=== PATIENT | female | born 1945 | race Caucasian/White ===

== ENCOUNTER 2016-12-18 15:40 | Emergency (ER) | payer MEDICARE ==
[2016-12-18 15:53] VITALS: BP 178/58
--- NOTE | 2016-12-18 16:17 | ED Physician Documentation ---
Eye Problem - HISTORIAN Historian: patient - HPI Stated Complaint: FB left eye Chief Complaint: Eye Problems Additional Information: thinks eye lash in lt eye Onset: days ago (1) Associated symptoms: pain, burining, itching, sensitivity to light Location: left eye Severity: mild, moderate Apparent Injury: no Context: foreign body Where: home Other Injuries: denies: neck, head, back Further Comments: yes - ROS CONST: no problems MS/SKIN/LYMPH: denies: weakness, numbness, neck pain, back pain CVS/RESP: none. denies: shortness of breath EYES/ENT: none GI/: denies: problems urinating - PAST HX Past History: other (hypothryoid) Allergies/Adverse Reactions: Allergies Allergy/AdvReac Type Severity Reaction Status Date / Time aspirin Allergy Mild stomach Verified 12/18/16 15:53 upset Home Medications: Ambulatory Orders Medication Instructions Recorded Levothyroxine Sodium [Synthroid] 100 mcg PO DAILY 10/12/12 - SOCIAL HX Smoking History: greater than 1 pack/day Alcohol Use: none Drug Use: none - FAMILY HX Family History: no significant history - VITAL SIGNS Vital Signs: Vital Signs Temp Pulse Resp BP Pulse Ox 98.2 F 89 20 178/58 94 12/18/16 15:50 12/18/16 15:50 12/18/16 15:50 12/18/16 15:50 12/18/16 15:50 - REVIEWED ASSESSMENTS Nursing Assessment Reviewed: Yes Vitals Reviewed: Yes ED Results Lab/Radiology - Lab Results Lab Results: no foriegn body found even w/ fluorisine and eye magnificaon Eye Problem Physical Exam - Physical Exam General Appearance: mild distress Examined with Slit Lamp: No Visual Acuity: no globe trauma Eyelids: nml inspection. No: foreign body under eyelid (L), subcutaneous orbital emphysema, edema (R), edema (L) Conjunctiva and Sclera: nml inspection. No: subconjunctival hemorrhage (L) Corneas: nml inspection. No: foreign body (L), fluorescein dye uptake (L) EOM: intact Pupils: equal Anterior Chambers: nml inspection Head/ENT: nml inspection Skin: nml color, skin intact. No: ecchymosis, abrasions, laceration Neck/Back: nml inspection Respiratory: chest non-tender, wheezes. No: no resp distress, breath sounds normal CVS: reg rate & rhythm, heart sounds normal Abdomen: non-tender Neuro/Psych: oriented x3 Discharge Clincal Impression: for body lt eye Referrals: Primary Doctor,No [Primary Care Provider] - 2 Days Comments: on exam w/ fluorisein and blue light no f/b found. decided to use fluorescein and blue light - no aF/B FOUND--USE SYSTANE Condition: Good Disposition: 01 HOME, SELF-CARE Decision to Admit: NO Decision Time: 16:25
== END 2016-12-18 16:15 | disposition home or self-care (01) ==
LOC: ED 15:40
DX: T15.92XA Foreign body on external eye, part unspecified, left eye, initial encounter (principal); X58.XXXA Exposure to other specified factors, initial encounter; Y93.9 Activity, unspecified; Y99.9 Unspecified external cause status
CPT/HCPCS: 99283

== ENCOUNTER 2018-08-24 08:50 | Emergency (ER) | payer MEDICARE ==
[2018-08-24] MEDS ORDERED: CEPHALEXIN 250 MG CAPSULE PO ONE (09:07)
--- NOTE | 2018-08-24 09:10 | ED Physician Documentation ---
Skin Rash - HISTORIAN Historian: patient - HPI Chief Complaint: Skin Rash (CELLULITIS) Additional Information: Patient is a 73-year-old female who presents to the ER with right foot redness- denies any pain, numbness, or tingling. States that she noticed redness 3 days ago- she states it actually looks better this morning then it did last night. She has a small blister between the 4th & 5th toe. Pedal pulses are 2+, brisk cap refills. No infection pass the foot. Onset: days ago (3 days) Timing: better (pt states it looks better) Location: LLE (foot) Quality: none Identified Cause?: No When Did Symptoms Start: 08/21/18 Where: home Context: Medication Exposure: none Context: Food Exposure: none Further Comments: no - ROS CONST: none CVS/RESP: none EYES/ENT: none GI/: none MS/SKIN/LYMPH: other (redness/erythema to right foot) NEURO/PSYCH: none - PAST HX Past History: other (COPD, DEPRESSION, HYPOTHYROID) Other History: none Surgeries/Procedures: Yes (BTL, TONSILS, RIGHT SHOULDER) Immunizations: UTD Allergies/Adverse Reactions: Allergies Allergy/AdvReac Type Severity Reaction Status Date / Time aspirin Allergy Mild stomach Verified 08/24/18 09:01 upset Home Medications: Ambulatory Orders Medication Instructions Recorded Levothyroxine Sodium [Synthroid] 100 mcg PO DAILY 10/12/12 Albuterol Sulfate [Proair Hfa] 2 puff INH Q4H PRN 08/24/18 Fluoxetine HCl [Prozac] 20 mg PO DAILY 08/24/18 Loratadine 10 mg PO DAILY 08/24/18 Tiotropium [place] [Spiriva] 1 puff INH DAILY 08/24/18 - SOCIAL HX Smoking History: greater than 1 pack/day (2PPD) Alcohol Use: none Drug Use: none - FAMILY HX Family History: none - VITAL SIGNS Vital Signs: Vital Signs Temp Pulse Resp BP Pulse Ox 178/58 12/18/16 16:15 - REVIEWED ASSESSMENTS Nursing Assessment Reviewed: Yes Vitals Reviewed: Yes ED Results Lab/Radiology - Orders Orders: ED Orders Category Date Time Status Cephalexin [Keflex] Med 08/24/18 09:07 Once 1,000 mg PO NOW ONE Skin Rash Physical Exam - EXAM General Appearance: no acute distress, alert Skin: warm,dry, other (REDNESS/ERYTHEMA RIGHT FOOT) Location: other (RIGHT FOOT) Character: erythematous Symptoms: warmth, swelling, inflammation EENT: eyes nml inspection, lips nml, pharynx nml Neck: trachea midline, no swelling Respiratory: breath sounds normal CVS: heart sounds nml Abdomen: nml bowel sounds Neuro/Psych: oriented x3, CN's nml as tested, motor nml, sensation nml, mood/affect nml Discharge Clincal Impression: Cellulitis of foot, right Referrals: Primary Doctor,No [Primary Care Provider] - 2 Days Additional Instructions: Cephalexin 1000 mg given in ER- start taking 500mg by mouth every 6 hours for 10 days (FINISH ANTIBIOTIC) Follow up with PCP next week for reevaluation Condition: Good Disposition: 01 HOME, SELF-CARE Decision to Admit: NO Decision Time: 09:12
[2018-08-24 09:14] VITALS: BP 139/56
== END 2018-08-24 09:15 | disposition home or self-care (01) ==
LOC: ED 08:50
DX: L03.115 Cellulitis of right lower limb (principal)
CPT/HCPCS: 99282